=== PATIENT | female | born 1955 | race Two or more races ===

== ENCOUNTER → 2018-08-27 | Outpatient (CLI) | payer MEDICAID ==
[2018-08-27 08:30] VITALS: BP 128/65
== END | disposition home or self-care (01) ==
LOC: CHF HDHVI 08:31
PROVIDERS: ATTEND Internal Medicine
DX: I27.20 Pulmonary hypertension, unspecified (principal)
CPT/HCPCS: G0463

== ENCOUNTER → 2018-09-19 | Outpatient (CLI) | payer MEDICARE, MEDICAID ==
[2018-09-19 08:15] VITALS: BP 147/80
--- NOTE | 2018-09-19 08:15 | NUR ---
CHF PT TO CHF CLINIC FOR MD AZEVEDO ORDERED PTINR REDRAW AND MEDICATION MANAGEMENT RELATED TO PAH
[2018-09-19 09:30] VITALS: BP 79/73
--- NOTE | 2018-09-19 09:30 | NUR ---
CHF Discharge Instructions See e-MAR for any mediations given with this visit. INR 1.3MG/DL . DR. AZEVEDO MEDICATION DOSE CHANGE FOR COUMADIN 7.5MG QOD , ALTERNATE WITH COUMADIN 5MG PO QD. REDRAW PTINR Monday09/24/18. Patient education given on disease process. Patient verbalized understanding. Previous labs reviewed. Patient discharged in stable condition with after care instructions and follow up appointment.
== END | disposition home or self-care (01) ==
LOC: CHF HDHVI 08:24
PROVIDERS: ATTEND Internal Medicine Cardiovascular Disease
CPT/HCPCS: G0463

== ENCOUNTER → 2018-09-26 | Outpatient (CLI) | payer MEDICARE, MEDICAID ==
[2018-09-26 10:20] VITALS: BP 107/57
[2018-09-26 10:57] VITALS: BP 110/56
--- NOTE | 2018-09-26 10:57 | NUR ---
CHF CLINIC Discharge Instructions See e-MAR for any mediations given with this visit. Patient education given on disease process. Patient verbalized understanding. Previous labs reviewed. Patient discharged in stable condition with after care instructions and follow up appointment WITH DR AZEVEDO ON 09/27/18 AT 1415. NOTE INR 4.9, TERESA RN EDUCATED PATIENT TO HOLD COUMADIN UNTIL MONDAY AND THEN RESUME 5MG DAILY. PATIENT WILL RETURN IN ONE WEEK FOR REDRAW OF INR.
== END | disposition home or self-care (01) ==
LOC: CHF HDHVI 10:22
PROVIDERS: ATTEND Internal Medicine Cardiovascular Disease
DX: I27.20 Pulmonary hypertension, unspecified (principal); I12.0 Hypertensive chronic kidney disease with stage 5 chronic kidney disease or end stage renal disease; N18.6 End stage renal disease; Z95.4 Presence of other heart-valve replacement
CPT/HCPCS: 85610; G0463

== ENCOUNTER → 2018-10-03 | Outpatient (CLI) | payer MEDICARE, MEDICAID ==
[2018-10-03 13:53] VITALS: BP 145/84
--- NOTE | 2018-10-03 13:53 | NUR ---
CHF PT TO CHF CLINIC FOR PAH REEVAL AND MD AZEVEDO ORDERED CARDIODYNAMIC AND PTINR . PT CURRENTLY ON COUMADIN 5MG.
[2018-10-03 14:42] VITALS: BP 151/85
--- NOTE | 2018-10-03 14:44 | NUR ---
CHF Discharge Instructions See e-MAR for any mediations given with this visit. Patient education given on disease process. Patient verbalized understanding. Previous labs reviewed. Patient discharged in stable condition with after care instructions and follow up appointment.
[2018-10-03 16:24] VITALS: BP 151/85
== END | disposition home or self-care (01) ==
LOC: CHF HDHVI 15:15
PROVIDERS: ATTEND Internal Medicine Cardiovascular Disease
DX: I27.20 Pulmonary hypertension, unspecified (principal)
CPT/HCPCS: G0463

== ENCOUNTER → 2018-10-05 | Outpatient (CLI) | payer MEDICARE, MEDICAID | END | disposition home or self-care (01) | LOC: LAB 11:12 | PROVIDERS: ATTEND Internal Medicine Cardiovascular Disease | DX: R79.1 Abnormal coagulation profile (principal) | CPT/HCPCS: 85610 ==

== ENCOUNTER → 2018-10-12 | Outpatient (CLI) | payer MEDICARE, MEDICAID ==
[2018-10-12 13:30] VITALS: BP 110/59
[2018-10-12 14:02] VITALS: BP 112/60
--- NOTE | 2018-10-12 14:02 | NUR ---
CHF CLINIC Discharge Instructions See e-MAR for any mediations given with this visit. Patient education given on disease process. Patient verbalized understanding. Previous labs reviewed. Patient discharged in stable condition with after care instructions and follow up appointment. NOTE PATIENT INR 1.3 MISSED 2 DOSES OF COUMADIN WILL CONTINUE TAKING 5MG AND COME BACK NEXT WEEK FOR RECHECK.
== END | disposition home or self-care (01) ==
LOC: CHF HDHVI 13:57
PROVIDERS: ATTEND Internal Medicine Cardiovascular Disease
DX: I27.20 Pulmonary hypertension, unspecified (principal); N18.6 End stage renal disease; Z95.4 Presence of other heart-valve replacement
CPT/HCPCS: 85610; G0463

== ENCOUNTER → 2018-10-17 | Outpatient (CLI) | payer MEDICARE, MEDICAID ==
[2018-10-17 12:57] VITALS: BP 131/89
--- NOTE | 2018-10-17 12:57 | NUR ---
CHF PT TO CHF CLINIC FOR PAH REEVAL AND REDRAW PTINR
[2018-10-17 13:20] VITALS: BP 128/81
== END | disposition home or self-care (01) ==
LOC: CHF HDHVI 13:04
PROVIDERS: ATTEND Internal Medicine Cardiovascular Disease
DX: I10 Essential (primary) hypertension (principal)
CPT/HCPCS: 85610; G0463

== ENCOUNTER → 2018-10-26 | Outpatient (CLI) | payer MEDICARE, MEDICAID ==
[2018-10-26 10:20] VITALS: BP 82/44
[2018-10-26 10:51] VITALS: BP 76/46
--- NOTE | 2018-10-26 10:51 | NUR ---
CHF CLINIC Discharge Instructions See e-MAR for any mediations given with this visit. Patient education given on disease process. Patient verbalized understanding. Previous labs reviewed. Patient discharged in stable condition with after care instructions and follow up appointment ON 11/[address] AZEVEDO. NOTE INR 1.5 ON 5MG COUMADIN DAILY, MD AWARE, COUMADIN DOSE TO REMAIN THE SAME.
== END | disposition home or self-care (01) ==
LOC: CHF HDHVI 11:00
PROVIDERS: ATTEND Internal Medicine Cardiovascular Disease
DX: I27.20 Pulmonary hypertension, unspecified (principal); I12.0 Hypertensive chronic kidney disease with stage 5 chronic kidney disease or end stage renal disease; N18.6 End stage renal disease; Z99.2 Dependence on renal dialysis; Z95.4 Presence of other heart-valve replacement
CPT/HCPCS: 85610; G0463

== ENCOUNTER → 2018-10-31 | Outpatient (CLI) | payer MEDICARE, MEDICAID ==
[2018-10-31 12:20] VITALS: BP 128/68
--- NOTE | 2018-10-31 12:20 | NUR ---
CHF PT TO CHF CLINIC FOR PAH REEVAL AND MD IBRAHIM ORDERED LABS WITH PTINR, CARDIODYNAMICS. PT SAW DR. AZEVEDO YESTERDAY NO MED CHANGES AT THAT TIME.
[2018-10-31 13:05] VITALS: BP 127/74
--- NOTE | 2018-10-31 13:05 | NUR ---
CHF Discharge Instructions See e-MAR for any mediations given with this visit. PER DR. IBRAHIM STOP EATING TUBS. TAKE NEXIUM 24 HR FOR GERD, Patient education given on disease process. Patient verbalized understanding. Previous labs reviewed. Patient discharged in stable condition with after care instructions and follow up appointment. FOLLOW UP WITH DR. AZEVEDO SCHEDULED. F/U IN CHF CLINIC IN 1 WEEK FOR REPEAT PTINR.
[2018-10-31 16:16] LABS: Calcium 8.1 mg/dL (8.5-10.1); Potassium 4.5 mmol/L (3.5-5.1)
[2018-10-31 16:20] LABS: BUN/Creatinine Ratio 11.5; Magnesium 3.2 mg/dL (1.6-2.6)
[2018-10-31 16:34] LABS: Basophils # (auto) 0.1 uL; Basophils % (auto) 1.2 % (0.0-2.0); Eosinophils # (auto) 0.1 uL; Eosinophils % (auto) 1.2 % (0.0-7.0); Hematocrit 35.3 % (36.0-46.0); Hemoglobin 11.6 g/dL (12.2-16.2); Lymphocytes # (auto) 0.8 uL; Lymphocytes % (auto) 16.3 % (10.0-50.0); Mean Corpuscular Hemoglobin 32.3 pg (28.0-32.0); Mean Corpuscular Hgb Conc. 32.8 g/dL (32.0-36.0); Mean Corpuscular Volume 98.5 fL (80.0-100.0); Monocytes # (auto) 0.6 uL; Monocytes % (auto) 11.9 % (0.0-12.0); Neutrophils # (auto) 3.4 uL; Neutrophils % (auto) 69.4 % (37.0-80.0); Platelet Count (auto) 97 10^3/uL (140-450); Red Blood Cells 3.58 10^6/uL (4.0-5.20); White Blood Cell 4.9 10^3/uL (4.4-10.8)
[2018-10-31 17:05] LABS: INR 1.25 (0.9-1.15); Partial Thromboplastin Time 35.7 sec (23.78-33.04); Prothrombin Time 13.2 sec (9.27-12.13)
== END | disposition home or self-care (01) ==
LOC: Rad HDHVI 12:31
PROVIDERS: ATTEND Internal Medicine Cardiovascular Disease
DX: D64.9 Anemia, unspecified (principal); R79.1 Abnormal coagulation profile; I10 Essential (primary) hypertension; E83.40 Disorders of magnesium metabolism, unspecified; I27.20 Pulmonary hypertension, unspecified; K21.9 Gastro-esophageal reflux disease without esophagitis; V89.2XXA Person injured in unspecified motor-vehicle accident, traffic, initial encounter; Y93.89 Activity, other specified; Y92.89 Other specified places as the place of occurrence of the external cause; Y99.8 Other external cause status
CPT/HCPCS: 36415; 80048; 83735; 85025; 85610; 85730; 93701; G0463

== ENCOUNTER → 2018-11-07 | Outpatient (CLI) | payer MEDICARE, MEDICAID ==
[~2018-11-07] MED LIST: MAGNESIUM SULFATE 1GM/100ML 100 ML IV ONE
[2018-11-07 12:47] VITALS: BP_SYST 120; BP_SYST 127; BP_DIAS 54; BP_DIAS 69
--- NOTE | 2018-11-07 12:47 | NUR ---
Clinic Provider DR IBRAHIM seeN pt with new orders received and carried out. PT AT CLINIC FOR PAH FOLLOW UP AND INR CHECK. PT IS ON DIALYSIS M, , , PT INSTRUCTED TO CONTINUE COUMADIN THERAPY OF 5.0 BID. VERBALIZED UNDERSTANDING
[2018-11-07 13:08] VITALS: BP 127/74
--- NOTE | 2018-11-07 13:08 | NUR ---
Discharge Instructions See e-MAR for any mediations given with this visit. Patient education given on disease process. Patient verbalized understanding. Previous labs reviewed. Patient discharged in stable condition with after care instructions and follow up appointment.
== END | disposition home or self-care (01) ==
LOC: CHF HDHVI 12:56
PROVIDERS: ATTEND Internal Medicine Cardiovascular Disease
DX: I27.21 Secondary pulmonary arterial hypertension (principal); Z99.2 Dependence on renal dialysis
CPT/HCPCS: 85610; G0463

== ENCOUNTER → 2018-11-21 | Outpatient (CLI) | payer MEDICARE, MEDICAID ==
[2018-11-21 13:41] VITALS: BP 121/70
[2018-11-21 13:58] VITALS: BP 134/78
--- NOTE | 2018-11-21 13:58 | NUR ---
CHF CLINIC Discharge Instructions See e-MAR for any mediations given with this visit. Patient education given on disease process. Patient verbalized understanding. Previous labs reviewed. Patient discharged in stable condition with after care instructions and follow up appointment. NOTE INR 2.1/25.7 ON 5MG BID, PATIENT WILL CONTINUE CURRENT DOSE AND F/U IN ONE WEEK.
== END | disposition home or self-care (01) ==
LOC: CHF HDHVI 13:43
PROVIDERS: ATTEND Internal Medicine Cardiovascular Disease
DX: R79.1 Abnormal coagulation profile (principal); Z95.4 Presence of other heart-valve replacement
CPT/HCPCS: 85610; G0463

== ENCOUNTER → 2018-11-23 | Outpatient (CLI) | payer MEDICARE, MEDICAID ==
[~2018-11-23] MED LIST changes: +IOHEXOL 350 MG/ML 100ML IJ ONE; -MAGNESIUM SULFATE 1GM/100ML 100 ML IV ONE
== END | disposition home or self-care (01) ==
LOC: CHF HDHVI 11:51
PROVIDERS: ATTEND Internal Medicine Cardiovascular Disease
DX: I70.0 Atherosclerosis of aorta (principal)
CPT/HCPCS: 71046; Q9967

== ENCOUNTER → 2018-11-27 | Outpatient (CLI) | payer MEDICARE, MEDICAID | END | disposition home or self-care (01) | LOC: Rad HDHVI 13:10 | PROVIDERS: ATTEND Internal Medicine Cardiovascular Disease | DX: I07.1 Rheumatic tricuspid insufficiency (principal); I48.91 Unspecified atrial fibrillation; I11.0 Hypertensive heart disease with heart failure; I50.9 Heart failure, unspecified; Z95.2 Presence of prosthetic heart valve | CPT/HCPCS: 93306 ==

== ENCOUNTER → 2018-11-30 | Outpatient (CLI) | payer MEDICARE, MEDICAID ==
[2018-11-30 11:48] VITALS: BP 119/56
[2018-11-30 12:57] VITALS: BP 127/70
--- NOTE | 2018-11-30 12:57 | NUR ---
CHF CLINIC Discharge Instructions See e-MAR for any mediations given with this visit. Patient education given on disease process. Patient verbalized understanding. Previous labs reviewed. Patient discharged in stable condition with after care instructions and follow up appointment ONE WEEK. NOTE INR 1.4 ON 5MG OF COUMADIN BID, PATIENT DOSAGE TO REMAIN THE SAME. CARDIODYNAMICS PERFORMED BY KODI GAY AND REVIEWED WITH PT BY TEJA MCKEON. 6MWT PERFORMED PATIENT IMPROVED BY 60M.
== END | disposition home or self-care (01) ==
LOC: CHF HDHVI 12:00
PROVIDERS: ATTEND Internal Medicine Cardiovascular Disease
DX: R53.83 Other fatigue (principal); I27.21 Secondary pulmonary arterial hypertension; Z95.4 Presence of other heart-valve replacement
CPT/HCPCS: 93701; 94618; G0463

== ENCOUNTER → 2018-12-07 | Outpatient (CLI) | payer MEDICARE, MEDICAID ==
[2018-12-07 11:30] VITALS: BP 137/72
[2018-12-07 11:56] VITALS: BP 122/70
--- NOTE | 2018-12-07 11:56 | NUR ---
Discharge Instructions See e-MAR for any mediations given with this visit. Patient education given on disease process. Patient verbalized understanding. Previous labs reviewed. Patient discharged in stable condition with after care instructions and follow up appointment. INR 1.9/PT 22.5; PT INSTRUCTED TO CONTINUE WITH CURRENT COUMADIN THERAPY OF 5 MG BID, AND INSTRUCTED TO FOLLOW UP NEXT WEEK FOR INR CHECK.
== END | disposition home or self-care (01) ==
LOC: CHF HDHVI 11:46
PROVIDERS: ATTEND Internal Medicine Cardiovascular Disease
DX: I13.11 Hypertensive heart and chronic kidney disease without heart failure, with stage 5 chronic kidney disease, or end stage renal disease (principal); N18.6 End stage renal disease; I27.21 Secondary pulmonary arterial hypertension; Z95.4 Presence of other heart-valve replacement
CPT/HCPCS: G0463

== ENCOUNTER → 2018-12-12 | Outpatient (CLI) | payer MEDICARE, MEDICAID ==
[~2018-12-12] VITALS: Ht 30.5 cm; Wt 58.4 kg
[~2018-12-12] MED LIST changes: +CYANOCOBALAMIN (B-12) 1000 MCG/1 ML VIAL IM ONE; +CYANOCOBALAMIN (B-12) 1000 MCG/1 ML VIAL ONE; -IOHEXOL 350 MG/ML 100ML IJ ONE
[2018-12-12 12:50] VITALS: BP 119/67
--- NOTE | 2018-12-12 12:50 | NUR ---
CHF CLINIC Discharge Instructions See e-MAR for any mediations given with this visit. Patient education given on disease process. Patient verbalized understanding. Previous labs reviewed. Patient discharged in stable condition with after care instructions and follow up appointment. NOTE B12 IM R DELTOID ADMIN BY KODI GAY. INR 1.1 MISSED DOSE OF COUMADIN PER DIALYSIS INSTRUCTIONS, PT/PTT DRAWN WILL DISCUSS RESULTS WITH MD FOR DOSE INSTRUCTIONS ON COUMADIN. PATIENT TO CONTINUE CURRENT DOSE OF 5MG DAILY.
[2018-12-12 16:11] LABS: INR 0.95 (0.9-1.15); Partial Thromboplastin Time 29.9 sec (23.78-33.04); Prothrombin Time 10.2 sec (9.27-12.13)
== END | disposition home or self-care (01) ==
LOC: CHF HDHVI 12:44
PROVIDERS: ATTEND Internal Medicine Cardiovascular Disease
DX: I13.2 Hypertensive heart and chronic kidney disease with heart failure and with stage 5 chronic kidney disease, or end stage renal disease (principal); N18.6 End stage renal disease; I50.9 Heart failure, unspecified; R53.83 Other fatigue; R79.1 Abnormal coagulation profile; I48.91 Unspecified atrial fibrillation; Z99.2 Dependence on renal dialysis; Z95.4 Presence of other heart-valve replacement; Z95.2 Presence of prosthetic heart valve
CPT/HCPCS: 36415; 85610; 85730; 96372; G0463; J3420

== ENCOUNTER → 2018-12-21 | Outpatient (CLI) | payer MEDICARE, MEDICAID ==
[2018-12-21 12:28] VITALS: BP 159/86
[2018-12-21 13:22] VITALS: BP 151/80
--- NOTE | 2018-12-21 13:22 | NUR ---
CHF CLINIC Discharge Instructions See e-MAR for any mediations given with this visit. Patient education given on disease process. Patient verbalized understanding. Previous labs reviewed. Patient discharged in stable condition with after care instructions and follow up appointment. NOTE INR 1.3 ON COUMADIN 5MG BID, DR IBRAHIM AWARE OF INR AND CHANGED COUMADIN TO 6MG BID. PATIENT WILL FOLLOW UP WITH DR AZEVEDO ON Monday12/25/18.
== END | disposition home or self-care (01) ==
LOC: CHF HDHVI 12:35
PROVIDERS: ATTEND Internal Medicine Cardiovascular Disease
DX: I12.9 Hypertensive chronic kidney disease with stage 1 through stage 4 chronic kidney disease, or unspecified chronic kidney disease (principal); N18.6 End stage renal disease; Z95.2 Presence of prosthetic heart valve
CPT/HCPCS: 85610; G0463

== ENCOUNTER → 2018-12-28 | Outpatient (CLI) | payer MEDICARE, MEDICAID ==
[2018-12-28 11:48] VITALS: BP 108/58
--- NOTE | 2018-12-28 11:48 | NUR ---
CHF CLINIC Discharge Instructions See e-MAR for any mediations given with this visit. Patient education given on disease process. Patient verbalized understanding. Previous labs reviewed. Patient discharged in stable condition with after care instructions and follow up appointment ONE WEEK. NOTE INR 1.3 PATIENT NEW DOSE OF COUMADIN NOT READY UNTIL TODAY, PATIENT WILL START NEW DOSE OF 6MG BID TODAY. B12 IM R DELTOID ADMIN BY KODI GAY.
== END | disposition home or self-care (01) ==
LOC: CHF HDHVI 11:16
PROVIDERS: ATTEND Internal Medicine Cardiovascular Disease
DX: I13.2 Hypertensive heart and chronic kidney disease with heart failure and with stage 5 chronic kidney disease, or end stage renal disease (principal); N18.6 End stage renal disease; I50.9 Heart failure, unspecified; R53.83 Other fatigue; I70.0 Atherosclerosis of aorta; I48.91 Unspecified atrial fibrillation; Z99.2 Dependence on renal dialysis; Z95.4 Presence of other heart-valve replacement
CPT/HCPCS: 96372; G0463; J3420

== ENCOUNTER → 2019-01-04 | Outpatient (CLI) | payer MEDICARE, MEDICAID ==
[2019-01-04 11:30] VITALS: BP 142/72
[2019-01-04 11:52] VITALS: BP 137/72
--- NOTE | 2019-01-04 11:52 | NUR ---
CHF CLINIC Discharge Instructions See e-MAR for any mediations given with this visit. Patient education given on disease process. Patient verbalized understanding. Previous labs reviewed. Patient discharged in stable condition with after care instructions and follow up appointment. NOTE INR 4.8/57.7 ON COUMADIN 6MG BID, PATIENT INSTRUCTED TO CHANGE DOSE TO 6MG ONCE DAILY AND RETURN IN ONE WEEK FOR REPEAT INR.
== END | disposition home or self-care (01) ==
LOC: CHF HDHVI 11:10
PROVIDERS: ATTEND Internal Medicine Cardiovascular Disease
DX: I27.21 Secondary pulmonary arterial hypertension (principal); Z95.2 Presence of prosthetic heart valve
CPT/HCPCS: 85610; G0463

== ENCOUNTER → 2019-01-11 | Outpatient (CLI) | payer MEDICARE, MEDICAID ==
[2019-01-11 12:50] VITALS: BP 139/76
[2019-01-11 13:10] VITALS: BP 159/86
--- NOTE | 2019-01-11 13:10 | NUR ---
CHF CLINIC Discharge Instructions See e-MAR for any mediations given with this visit. Patient education given on disease process. Patient verbalized understanding. Previous labs reviewed. Patient discharged in stable condition with after care instructions and follow up appointment NEXT MONDAY. NOTE INR 2.0 ON 6MG OF COUMADIN DAILY, WILL CONTINUE CURRENT DOSE.
== END | disposition home or self-care (01) ==
LOC: CHF HDHVI 13:00
PROVIDERS: ATTEND Internal Medicine Cardiovascular Disease
DX: I27.21 Secondary pulmonary arterial hypertension (principal); Z95.4 Presence of other heart-valve replacement
CPT/HCPCS: 85610; G0463

== ENCOUNTER → 2019-01-23 | Outpatient (CLI) | payer MEDICARE, MEDICAID ==
--- NOTE | 2019-01-23 12:39 | NUR ---
CHF PT ARRIVED AT THE CHF CLINIC FOR MONTHLY F/U 0 DISTRESS NOTED, V/S OBTAINED PT A/0 X 3
--- NOTE | 2019-01-23 12:50 | NUR ---
Clinic Provider Clinic Provider into see pt with new orders received and carried out.
--- NOTE | 2019-01-23 13:25 | NUR ---
Discharge Instructions See e-MAR for any mediations given with this visit. Patient education given on disease process. Patient verbalized understanding. Previous labs reviewed. Patient discharged in stable condition with after care instructions and follow up appointment. MEDICATIONS 1324 VITAMIN B12 1000 MCG GIVEN
[2019-01-23 13:28] VITALS: BP 130/74
== END | disposition home or self-care (01) ==
LOC: CHF HDHVI 12:25
PROVIDERS: ATTEND Internal Medicine Cardiovascular Disease
DX: R79.1 Abnormal coagulation profile (principal); R53.83 Other fatigue; I50.9 Heart failure, unspecified
CPT/HCPCS: 85610; 93701; 94618; 96372; G0463; J3420

== ENCOUNTER → 2019-01-30 | Outpatient (CLI) | payer MEDICARE, MEDICAID | END | disposition home or self-care (01) | LOC: LAB 11:11 | PROVIDERS: ATTEND Internal Medicine Cardiovascular Disease | DX: R79.1 Abnormal coagulation profile (principal) | CPT/HCPCS: 85610 ==